=== PATIENT | male | born 1960 | race Caucasian/White ===

== ENCOUNTER 2019-09-25 10:13 | Inpatient (IN) | payer MEDICARE, OTHER ==
[~2019-09-25] VITALS: Ht 185.4 cm; Wt 87.8 kg
[2019-09-25] MEDS ORDERED: ONDANSETRON ODT 4 MG PO PRN (11:00)
[2019-09-25] MEDS ORDERED: NICOTINE 14MG/24 HR PATCH.TD24 TD SCH (11:00)
[2019-09-25] MEDS ORDERED: ACETAMINOPHEN 325 MG TABLET PO PRN (11:00)
[2019-09-25] MEDS ORDERED: POLYETHYLENE GLYCOL 17 GM PACKET PO PRN (11:00)
[2019-09-25] MEDS ORDERED: BISACODYL 10 MG SUPP PR PRN (11:00)
[2019-09-25] MEDS ORDERED: DOCUSATE 100 MG CAPSULE PO PRN (11:00)
[2019-09-25 14:00] VITALS: BP 135/85
[2019-09-25] MEDS ORDERED: PLEASE ENTER HEIGHT AND WEIGHT MC SCH (14:00)
[2019-09-25] MEDS: LIDODERM 5% PATCH TD SCH (15:04)
[2019-09-25] MEDS: OXYcodone IR 5MG TABLET PO PRN ×3 (15:06→23:55)
[2019-09-25] MEDS: GABAPENTIN 300 MG CAPSULE PO SCH (20:09)
[2019-09-25] MEDS: DIPHENHYDRAMINE 25 MG CAPSULE PO PRN (20:09)
[2019-09-25] MEDS: PREGABALIN 150 MG CAPSULE PO SCH (20:09)
[2019-09-25 20:13] VITALS: BP 143/88
[2019-09-26] MEDS: OXYcodone IR 5MG TABLET PO PRN ×7 (03:30→22:47)
[2019-09-26 05:27] LABS: BASOPHILS # (AUTO) 0.03 x10^3/uL (0-0.1); BASOPHILS % (AUTO) 0 % (0-1); EOSINOPHILS # (AUTO) 0.32 x10^3/uL (0-0.4); EOSINOPHILS % (AUTO) 5 % (1-7); LYMPHOCYTES # (AUTO) 1.68 x10^3/uL (1-3.4); LYMPHOCYTES % (AUTO) 26 % (22-44); MD NO; MEAN CORPUSCULAR HGB CONC 33.2 g/dL (33.2-36.2); MONOCYTES # (AUTO) 0.69 x10^3/uL (0.2-0.8); MONOCYTES % (AUTO) 10 % (2-9); NEUTROPHILS # (AUTO) 3.88 x10^3/uL (1.8-6.8); NEUTROPHILS % (AUTO) 59 % (42-75); PLATELET COUNT 322 x10^3/uL (130-400); RED BLOOD COUNT 4.17 x10^6/uL (4.38-5.82); RED CELL DISTRIBUTION WIDTH 14.6 % (9.4-14.8)
[2019-09-26 05:29] LABS: ALANINE AMINOTRANSFERASE 49 U/L (12-78); ALBUMIN 3.3 g/dL (3.4-5.0); ANION GAP 4 mmol/L (5-15); CALCIUM 8.9 mg/dL (8.5-10.1); CHLORIDE 109 mmol/L (98-107); CREATININE 0.65 mg/dL (0.7-1.3)
[2019-09-26 05:38] LABS: ALKALINE PHOSPHATASE 64 U/L (45-117); BILIRUBIN,TOTAL 0.6 mg/dL (0.2-1.0); CHOL/HDL RATIO 4.2; CHOLESTEROL, TOTAL 180 mg/dL (140-239); FREE T4 (FREE THYROXINE) 1.04 ng/dL (0.76-1.46); HDL CHOL % 24 % (26-37); HDL CHOLESTEROL (DIRECT) 43 mg/dL (40-60); LDL CHOLESTEROL,CALCULATED 113 mg/dL (54-169); LDL/HDL RATIO 2.6 (0.5-3.0); TOTAL PROTEIN 6.8 g/dL (6.4-8.2); TRIGLYCERIDES 119 mg/dL (50-200); VLDL CHOLESTEROL 24 mg/dL (0-25)
[2019-09-26 07:31] VITALS: BP 127/78
[2019-09-26] MEDS: DULOXETINE 30 MG CAPSULE.DR PO SCH (08:28)
[2019-09-26] MEDS: GABAPENTIN 300 MG CAPSULE PO SCH (08:29)
[2019-09-26] MEDS: PREGABALIN 150 MG CAPSULE PO SCH ×2 (08:29→20:10)
[2019-09-26] MEDS: LIDODERM 5% PATCH TD SCH (08:36)
[2019-09-26] MEDS: SENNA/DOCUSATE TABLET PO SCH (08:55)
[2019-09-26 19:35] VITALS: BP 119/72
[2019-09-26] MEDS: DIPHENHYDRAMINE 25 MG CAPSULE PO PRN (20:10)
[2019-09-27] MEDS: OXYcodone IR 5MG TABLET PO PRN ×6 (01:47→20:58)
[2019-09-27 06:36] VITALS: BP 126/77
[2019-09-27] MEDS: SENNA/DOCUSATE TABLET PO SCH (08:36)
[2019-09-27] MEDS: PREGABALIN 150 MG CAPSULE PO SCH ×2 (12:19→21:16)
[2019-09-27] MEDS: DULOXETINE 30 MG CAPSULE.DR PO SCH (12:23)
[2019-09-27] MEDS: LIDODERM 5% PATCH TD SCH (12:34)
[2019-09-27 19:44] VITALS: BP 120/75
[2019-09-28] MEDS: OXYcodone IR 5MG TABLET PO PRN ×7 (00:03→19:44)
[2019-09-28 07:00] VITALS: BP 97/65
[2019-09-28] MEDS: DULOXETINE 30 MG CAPSULE.DR PO SCH (08:56)
[2019-09-28] MEDS: PREGABALIN 150 MG CAPSULE PO SCH ×2 (08:56→21:09)
[2019-09-28] MEDS: SENNA/DOCUSATE TABLET PO SCH (08:57)
[2019-09-28] MEDS: LIDODERM 5% PATCH TD SCH (08:58)
[2019-09-28 19:19] VITALS: BP 111/66
[2019-09-29] MEDS: OXYcodone IR 5MG TABLET PO PRN ×8 (00:13→22:49)
[2019-09-29 07:00] VITALS: BP 120/70
[2019-09-29] MEDS: PREGABALIN 150 MG CAPSULE PO SCH ×2 (09:15→19:44)
[2019-09-29] MEDS: SENNA/DOCUSATE TABLET PO SCH (09:16)
[2019-09-29] MEDS: LIDODERM 5% PATCH TD SCH (09:17)
[2019-09-29] MEDS: DULOXETINE 30 MG CAPSULE.DR PO SCH (09:58)
[2019-09-29 19:16] VITALS: BP 129/76
[2019-09-29] MEDS: DIPHENHYDRAMINE 25 MG CAPSULE PO PRN (19:44)
[2019-09-30] MEDS: OXYcodone IR 5MG TABLET PO PRN ×4 (02:34→18:03)
[2019-09-30 07:59] VITALS: BP 117/69
[2019-09-30] MEDS: SENNA/DOCUSATE TABLET PO SCH (08:30)
[2019-09-30] MEDS: PREGABALIN 150 MG CAPSULE PO SCH ×2 (08:30→21:30)
[2019-09-30] MEDS: DULOXETINE 30 MG CAPSULE.DR PO SCH (08:31)
[2019-09-30] MEDS: LIDODERM 5% PATCH TD SCH (09:43)
[2019-09-30] MEDS ORDERED: BUPRENORPHINE HCL 2 MG TAB.SUBL SL ONE (14:00)
[2019-09-30 16:46] VITALS: BP 130/87
[2019-09-30 19:37] VITALS: BP 124/73
[2019-09-30] MEDS: BUPRENORPHINE HCL 2 MG TAB.SUBL SL SCH (21:31)
[2019-09-30] MEDS: DIPHENHYDRAMINE 25 MG CAPSULE PO PRN (21:34)
[2019-09-30 22:44] VITALS: BP 129/73
[2019-10-01 07:40] VITALS: BP 123/85
[2019-10-01] MEDS: SENNA/DOCUSATE TABLET PO SCH (08:55)
[2019-10-01] MEDS: PREGABALIN 150 MG CAPSULE PO SCH ×3 (08:55→21:01)
[2019-10-01] MEDS: DULOXETINE 30 MG CAPSULE.DR PO SCH (08:58)
[2019-10-01] MEDS: LIDODERM 5% PATCH TD SCH (09:07)
[2019-10-01] MEDS: BUPRENORPHINE HCL 2 MG TAB.SUBL SL SCH ×2 (10:20→21:05)
[2019-10-01] MEDS: OXYcodone IR 5MG TABLET PO PRN (17:52)
[2019-10-01 19:38] VITALS: BP 127/66
[2019-10-01] MEDS: DIPHENHYDRAMINE 25 MG CAPSULE PO PRN (21:15)
[2019-10-02 07:44] VITALS: BP 132/79
[2019-10-02] MEDS: SENNA/DOCUSATE TABLET PO SCH (08:00)
[2019-10-02] MEDS: DULOXETINE 30 MG CAPSULE.DR PO SCH (08:00)
[2019-10-02] MEDS: PREGABALIN 150 MG CAPSULE PO SCH ×2 (08:00→20:15)
[2019-10-02] MEDS: BUPRENORPHINE HCL 2 MG TAB.SUBL SL SCH ×2 (08:46→20:16)
[2019-10-02] MEDS: LIDODERM 5% PATCH TD SCH (08:52)
[2019-10-02 11:02] VITALS: BP 108/70
[2019-10-02] MEDS: OXYcodone IR 5MG TABLET PO PRN ×2 (11:02→17:45)
[2019-10-02 19:40] VITALS: BP 116/70
[2019-10-02] MEDS: DIPHENHYDRAMINE 25 MG CAPSULE PO PRN (20:29)
[2019-10-03 05:31] LABS: BASOPHILS # (AUTO) 0.02 x10^3/uL (0-0.1); BASOPHILS % (AUTO) 0 % (0-1); EOSINOPHILS # (AUTO) 0.29 x10^3/uL (0-0.4); EOSINOPHILS % (AUTO) 5 % (1-7); LYMPHOCYTES # (AUTO) 2.05 x10^3/uL (1-3.4); LYMPHOCYTES % (AUTO) 35 % (22-44); MD NO; MEAN CORPUSCULAR HEMOGLOBIN 29.7 pg (27.5-34.5); MEAN CORPUSCULAR HGB CONC 32.9 g/dL (33.2-36.2); MEAN PLATELET VOLUME 7.2 fL (7.4-10.4); MONOCYTES # (AUTO) 0.66 x10^3/uL (0.2-0.8); MONOCYTES % (AUTO) 11 % (2-9); NEUTROPHILS # (AUTO) 2.88 x10^3/uL (1.8-6.8); NEUTROPHILS % (AUTO) 49 % (42-75); PLATELET COUNT 365 x10^3/uL (130-400); RED BLOOD COUNT 4.07 x10^6/uL (4.38-5.82); RED CELL DISTRIBUTION WIDTH 15.1 % (9.4-14.8)
[2019-10-03] MEDS: OXYcodone IR 5MG TABLET PO PRN ×2 (05:33→17:42)
[2019-10-03 05:38] LABS: ANION GAP 5 mmol/L (5-15); CALCIUM 8.3 mg/dL (8.5-10.1); CHLORIDE 105 mmol/L (98-107); CREATININE 0.63 mg/dL (0.7-1.3)
[2019-10-03 07:00] VITALS: BP 111/73
[2019-10-03] MEDS: LIDODERM 5% PATCH TD SCH (09:00)
[2019-10-03] MEDS: BUPRENORPHINE HCL 2 MG TAB.SUBL SL SCH ×2 (11:01→21:20)
[2019-10-03] MEDS ORDERED: LIDOCAINE 1%, 10ML ONE (12:33)
[2019-10-03] MEDS: SENNA/DOCUSATE TABLET PO SCH (13:17)
[2019-10-03] MEDS: PREGABALIN 150 MG CAPSULE PO SCH ×2 (13:17→21:20)
[2019-10-03] MEDS: DULOXETINE 30 MG CAPSULE.DR PO SCH (13:17)
[2019-10-03 19:15] VITALS: BP 116/68
[2019-10-04 05:31] LABS: BASOPHILS # (AUTO) 0.03 x10^3/uL (0-0.1); BASOPHILS % (AUTO) 0 % (0-1); EOSINOPHILS % (AUTO) 5 % (1-7); LYMPHOCYTES # (AUTO) 1.99 x10^3/uL (1-3.4); LYMPHOCYTES % (AUTO) 30 % (22-44); MD NO; MEAN CORPUSCULAR HEMOGLOBIN 29.9 pg (27.5-34.5); MEAN CORPUSCULAR HGB CONC 33.2 g/dL (33.2-36.2); MEAN PLATELET VOLUME 7.5 fL (7.4-10.4); MONOCYTES # (AUTO) 0.74 x10^3/uL (0.2-0.8); MONOCYTES % (AUTO) 11 % (2-9); NEUTROPHILS # (AUTO) 3.51 x10^3/uL (1.8-6.8); NEUTROPHILS % (AUTO) 53 % (42-75); PLATELET COUNT 381 x10^3/uL (130-400); RED CELL DISTRIBUTION WIDTH 14.9 % (9.4-14.8)
[2019-10-04 05:49] LABS: ANION GAP 6 mmol/L (5-15); CALCIUM 8.5 mg/dL (8.5-10.1); CHLORIDE 105 mmol/L (98-107); CREATININE 0.88 mg/dL (0.7-1.3)
[2019-10-04 07:00] VITALS: BP 119/67
[2019-10-04] MEDS: BUPRENORPHINE HCL 2 MG TAB.SUBL SL SCH ×2 (09:00→20:47)
[2019-10-04] MEDS: LIDODERM 5% PATCH TD SCH (09:00)
[2019-10-04] MEDS: DULOXETINE 30 MG CAPSULE.DR PO SCH (09:18)
[2019-10-04] MEDS: PREGABALIN 150 MG CAPSULE PO SCH ×2 (09:19→20:46)
[2019-10-04] MEDS: SENNA/DOCUSATE TABLET PO SCH (09:19)
[2019-10-04] MEDS: OXYcodone IR 5MG TABLET PO PRN ×2 (10:57→16:25)
[2019-10-04 19:49] VITALS: BP 129/68
[2019-10-05] MEDS: DIPHENHYDRAMINE 25 MG CAPSULE PO PRN ×2 (01:58→20:53)
[2019-10-05 07:18] VITALS: BP 126/79
[2019-10-05] MEDS: DULOXETINE 30 MG CAPSULE.DR PO SCH (08:46)
[2019-10-05] MEDS: PREGABALIN 150 MG CAPSULE PO SCH ×2 (08:47→20:32)
[2019-10-05] MEDS: SENNA/DOCUSATE TABLET PO SCH (08:48)
[2019-10-05] MEDS: BUPRENORPHINE HCL 2 MG TAB.SUBL SL SCH ×3 (08:55→20:33)
[2019-10-05] MEDS: LIDODERM 5% PATCH TD SCH (09:00)
[2019-10-05] MEDS ORDERED: BUPR2TAB SL ×2 (15:37)
[2019-10-05] MEDS ORDERED: DULO30CA2 PO (15:37)
[2019-10-05] MEDS ORDERED: PREG150C PO (15:37)
[2019-10-05 20:00] VITALS: BP 125/70
[2019-10-06 07:08] VITALS: BP 116/71
[2019-10-06] MEDS: LIDODERM 5% PATCH TD SCH ×2 (09:00→09:08)
[2019-10-06] MEDS: BUPRENORPHINE HCL 2 MG TAB.SUBL SL SCH ×2 (09:02→12:15)
[2019-10-06] MEDS: DULOXETINE 30 MG CAPSULE.DR PO SCH (09:03)
[2019-10-06] MEDS: PREGABALIN 150 MG CAPSULE PO SCH (09:03)
[2019-10-06] MEDS: SENNA/DOCUSATE TABLET PO SCH (09:03)
== END 2019-10-06 14:05 | disposition home or self-care (01) | DRG 885 ==
LOC: 3E 13:49
PROVIDERS: ADMIT Psychiatry & Neurology Psychosomatic Medicine; ATTEND Psychiatry & Neurology Psychosomatic Medicine
PROC: 0JB53ZX Excision of Left Neck Subcutaneous Tissue and Fascia, Percutaneous Approach, Diagnostic (ICD-10-PCS; principal; 2019-10-03)
DX: F33.2 Major depressive disorder, recurrent severe without psychotic features (principal); S22.32XA Fracture of one rib, left side, initial encounter for closed fracture; F11.20 Opioid dependence, uncomplicated; S27.0XXA Traumatic pneumothorax, initial encounter; F17.220 Nicotine dependence, chewing tobacco, uncomplicated; F43.21 Adjustment disorder with depressed mood; F60.9 Personality disorder, unspecified; G89.29 Other chronic pain; Z79.899 Other long term (current) drug therapy; Z80.0 Family history of malignant neoplasm of digestive organs; Z81.8 Family history of other mental and behavioral disorders; Z89.511 Acquired absence of right leg below knee; Z91.5 Personal history of self-harm; Z91.018 Allergy to other foods; Y92.89 Other specified places as the place of occurrence of the external cause
CPT/HCPCS: 20206; 36415; 76536; 76942; 80048; 80053; 80061; 83605; 84439; 84443; 85025; 88112; 88305; 88341; 88342; 93005; 93922; 92523-GN; Q0163

== ENCOUNTER 2020-02-08 13:51 | Outpatient (CLI) | payer MEDICARE ==
[~2020-02-08 13:51] MED LIST: BUPR2TAB SL; DULO30CA2 PO; PREG150C PO
[2020-02-08 14:17] LABS: BASOPHILS % (AUTO) 0 % (0-1); EOSINOPHILS % (AUTO) 3 % (1-7); LYMPHOCYTES % (AUTO) 26 % (22-44); MEAN CORPUSCULAR HEMOGLOBIN 28.5 pg (27.5-34.5); MEAN CORPUSCULAR HGB CONC 33.5 g/dL (33.2-36.2); MONOCYTES % (AUTO) 9 % (2-9); NEUTROPHILS % (AUTO) 62 % (42-75); PLATELET COUNT 300 x10^3/uL (130-400); RED BLOOD COUNT 5.08 x10^6/uL (4.38-5.82); RED CELL DISTRIBUTION WIDTH 15.1 % (9.4-14.8)
[2020-02-08 14:24] LABS: ANION GAP 2 mmol/L (5-15); CALCIUM 8.7 mg/dL (8.5-10.1); CHLORIDE 108 mmol/L (98-107); CREATININE 0.79 mg/dL (0.7-1.3); INTERNATIONAL NORMALIZED RATIO 0.98 (0.93-1.1); PROTHROMBIN TIME 10.4 Seconds (9.6-11.5)
[2020-02-08 14:29] LABS: MD NO
[2020-02-08 15:42] LABS: MICROSCOPIC NOT IND
== END 2020-02-08 23:59 | disposition home or self-care (01) ==
LOC: RAD 13:51
PROVIDERS: ATTEND Anesthesiology
DX: Z01.89 Encounter for other specified special examinations (principal)
CPT/HCPCS: 36415; 71046; 80048; 81003; 85025; 85610; 85730; 93005

== ENCOUNTER → 2020-03-28 | Outpatient (CLI) | payer MEDICARE ==
[2020-03-28 12:26] LABS: BASOPHILS % (AUTO) 1 % (0-1); EOSINOPHILS % (AUTO) 3 % (1-7); LYMPHOCYTES % (AUTO) 32 % (22-44); MEAN CORPUSCULAR HEMOGLOBIN 29.8 pg (27.5-34.5); MEAN CORPUSCULAR HGB CONC 33.7 g/dL (33.2-36.2); MEAN PLATELET VOLUME 6.7 fL (7.4-10.4); MONOCYTES % (AUTO) 7 % (2-9); NEUTROPHILS % (AUTO) 57 % (42-75); PLATELET COUNT 322 x10^3/uL (130-400); RED BLOOD COUNT 4.79 x10^6/uL (4.38-5.82); RED CELL DISTRIBUTION WIDTH 14.6 % (9.4-14.8)
[2020-03-28 12:27] LABS: MD NO
[2020-03-28 12:28] LABS: MICROSCOPIC AUTO
[2020-03-28 12:35] LABS: INTERNATIONAL NORMALIZED RATIO 0.98 (0.93-1.1); PROTHROMBIN TIME 10.4 Seconds (9.6-11.5)
[2020-03-28 12:37] LABS: ANION GAP 4 mmol/L (5-15); CALCIUM 8.7 mg/dL (8.5-10.1); CHLORIDE 108 mmol/L (98-107); CREATININE 0.86 mg/dL (0.7-1.3)
== END | disposition home or self-care (01) ==
LOC: LAB 12:05
PROVIDERS: ATTEND Anesthesiology
DX: Z01.818 Encounter for other preprocedural examination (principal); M79.606 Pain in leg, unspecified
CPT/HCPCS: 36415; 80048; 81001; 85025; 85610; 85730; 87086